=== PATIENT | male | born 1945 | race Caucasian/White ===

== ENCOUNTER → 2020-03-12 10:05 | Outpatient (POV) | payer MEDICARE, OTHER, SELFPAY | PROVIDERS: Visit Provider Audiologist | DX: Z00.00 Encounter for general adult medical examination without abnormal findings (principal) ==

== ENCOUNTER → 2021-09-24 12:37 | Outpatient (CLI) | payer MEDICARE, SELFPAY ==
[2021-09-24 14:05] VITALS: PULSE 63; PULSE 74
== END ==
PROVIDERS: PCP Internal Medicine Adolescent Medicine; Visit Provider Internal Medicine Adolescent Medicine
DX: R06.02 Shortness of breath (principal)
CPT/HCPCS: 94060; 94640; 94726; 94729

== ENCOUNTER → 2022-06-14 13:09 | Outpatient (CLI) | payer MEDICARE, SELFPAY ==
--- NOTE | 2022-06-14 13:16 | XR_ITS ---
FINAL REPORT CLINICAL HISTORY: PAIN FINDINGS: 3 views of the left knee were obtained. There is no acute fracture or dislocation. There is mild degenerative joint disease. There is no soft tissue abnormality. IMPRESSION: Mild degenerative joint disease. Reviewed, Interpreted and Dictated by Teri Lujan MD Transcribed by Checo Peres Authenticated and [facility]
--- NOTE | 2022-06-14 13:16 | XR_ITS ---
FINAL REPORT CLINICAL HISTORY: PAIN FINDINGS: 3 views of the right knee were obtained. There is no acute fracture or dislocation. There is [id number] degenerative joint disease. There is no soft tissue abnormality. IMPRESSION: [id number] degenerative joint disease. Reviewed, Interpreted and Dictated by Teri Lujan MD Transcribed by Checo Peres Authenticated and [facility]
== END ==
PROVIDERS: PCP Internal Medicine Adolescent Medicine; Visit Provider Internal Medicine Adolescent Medicine
DX: M25.562 Pain in left knee (principal); M25.561 Pain in right knee
CPT/HCPCS: 73562

== ENCOUNTER → 2022-08-17 14:15 | Outpatient (POV) | payer MEDICARE, SELFPAY | PROVIDERS: Visit Provider Specialist/Technologist | DX: Z00.00 Encounter for general adult medical examination without abnormal findings (principal) ==

== ENCOUNTER → 2022-10-21 15:20 | Outpatient (CLI) | payer MEDICARE, SELFPAY ==
--- NOTE | 2022-10-21 15:33 | XR_ITS ---
FINAL REPORT CLINICAL HISTORY: Left ankle pain COMPARISON: None FINDINGS: LEFT ANKLE Three views demonstrate no acute fracture or dislocation. There is a well-corticated ossific density inferior to the lateral malleolus measuring about 8 mm probably due to old trauma. Sideplate and screws are present securing the base of the first metatarsal. The visualized joint spaces are normally aligned. Moderate plantar spur is noted. There is moderate soft tissue swelling about the ankle. IMPRESSION: No acute bony abnormality. Reviewed, Interpreted and Dictated by Leo Alston MD Transcribed by Trini Acosta Authenticated and [facility]
== END ==
PROVIDERS: PCP Internal Medicine Adolescent Medicine; Visit Provider Orthopaedic Surgery
DX: M25.572 Pain in left ankle and joints of left foot (principal)
CPT/HCPCS: 73610

== ENCOUNTER → 2022-12-07 13:21 | Outpatient (CLI) | payer MEDICARE, SELFPAY ==
--- NOTE | 2022-12-07 13:21 | MR_ITS ---
FINAL REPORT CLINICAL HISTORY: ankle pain MEDIAL LEFT ANKLE PAIN X 2 MONTHS COMPARISON: None FINDINGS: Multiplanar MR imaging of the left ankle was performed without contrast.Mild and moderate degenerative changes present in the ankle. The bony structures are intact without evidence of fracture, bone bruise or marrow edema. There is a 5 mm osteochondral lesion in the distal tibia. There are chronic calcifications adjacent to both malleoli. There is thinning and bowing of the ATFL consistent with a chronic tear. The calcaneofibular ligament is not seen consistent with a tear. The flexor and extensor tendons are intact. There is a plantar calcaneal spur and posterior plantar fasciitis with a small tear. Small tibiotalar and subtalar joint effusions are seen. There is also fluid present in the sinus Tarsi worrisome for sinus Tarsi syndrome. The musculature is intact. There is no evidence of soft tissue mass or cyst. Soft tissue edema is present. IMPRESSION: Fluid in the sinus Tarsi worrisome for sinus Tarsi syndrome. Posterior plantar fasciitis with a small tear. 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 Reviewed, Interpreted and Dictated by Deniz Mg III, MD Transcribed by Deirdre Sosa Authenticated and [facility]
== END ==
PROVIDERS: PCP Internal Medicine Adolescent Medicine; Visit Provider Orthopaedic Surgery
DX: M25.572 Pain in left ankle and joints of left foot (principal)
CPT/HCPCS: 73721

== ENCOUNTER 2023-01-05 14:00 | Outpatient (RCR) | payer MEDICARE, SELFPAY ==
--- NOTE | 2022-12-21 14:51 | HMH.PTOPEV ---
PT Outpatient Evaluation Rehab PT Outpatient Evaluation Start: 12/21/22 14:37 Freq: Status: Active Protocol: Document 12/21/22 14:38 CAMERON (Rec: 12/21/22 14:51 CAMERON [id number]) E-signed By Bran Guzman, PT Outpatient Therapy Subjective History Subjective History Patient is a 77 year old male presenting to outpatient PT with reports of L foot/ankle pain of insidious onset starting approx 3 months ago. Most recent imaging indicates chronic ATFL and CFL tears, partial PF tear and tibial osteochondral defect. Comorbidities include hx of gastric bypass, HTN, diabetes and hernia repair. Chief Complaint Pain,Stiff,Swelling,Weakness Symptom Type Burning,Shooting Symptoms Relieved By Rest/Positioning,Prescription Meds Symptoms Aggravated By Standing,Physical Activity, Walking Prior Functional Limitations None Current Functional Limitations Housework,Standing,Recreation Activity,Walking,Stairs, Balance Symptom Description Intermittent Level of pain today (0-10) 1 Pain scale - at its best (0-10) 0 Pain scale - at its worst (0-10) 9 Ankle/Foot Eval Gait Observation General Gait Pattern Observation Antalgic Gait,Decrease Weight Bear (L) Assistive Device Ambulation Assistive Device None Palpation Tenderness left Ankle/Foot Palpation Findings Tenderness ATF TTP positive CF TTP positive ROM Ankle/Foot Dorsiflexion w/Knee Extended -3 Active Range Motion (degrees) Ankle/Foot Plantar Flexion Active Range 38 of Motion (degrees) Ankle/Foot Eversion Active Range of 11 Motion (degrees) Ankle/Foot Inversion Active Range of 14 Motion (degrees) Ankle/Foot ROM Limitations Soft Tissue Tightness,Bony Restriction Great Toe ROM Reason Not Measured Within Functional Limits Accessory Movements Ankle Accessory Movements that Elicit Tibial Dorsal Ferris,Tibial Symptoms Ventral Ferris MMT left Ankle Dorsiflexion Strength Grade 5 Normal Ankle Plantarflexion Strength Grade 5 Normal Foot Eversion Strength Grade 4- Good- Foot Inversion Strength Grade 4- Good- Special Tests Ankle Anterior Drawer Test Negative Left Ankle Eversion Test Negative Left Foot Interdig
== END 2023-01-05 14:05 | disposition home or self-care (01) ==
LOC: PT 14:00
PROVIDERS: PCP Internal Medicine Adolescent Medicine; Visit Provider Orthopaedic Surgery
DX: M25.572 Pain in left ankle and joints of left foot (principal); S93.492A Sprain of other ligament of left ankle, initial encounter; S93.412A Sprain of calcaneofibular ligament of left ankle, initial encounter
CPT/HCPCS: 97010; 97014; 97035; 97110; 97163; 97530; G0283

== ENCOUNTER → 2023-02-09 07:40 | Outpatient (CLI) | payer MEDICARE, SELFPAY ==
--- NOTE | 2023-02-09 07:47 | US_ITS ---
FINAL REPORT CLINICAL HISTORY: AAA COMPARISON: None FINDINGS: Sonographic images were obtained of the abdominal aorta. The abdominal aorta measures up to 2.7 in greatest dimensions. The common iliac arteries are within normal limits. IMPRESSION: No evidence of aortic aneurysm. Reviewed, Interpreted and Dictated by Deniz Mg III, MD Transcribed by Deirdre Sosa Authenticated and . [facility]
== END ==
PROVIDERS: PCP Internal Medicine Adolescent Medicine; Visit Provider Internal Medicine Adolescent Medicine
DX: Z13.6 Encounter for screening for cardiovascular disorders (principal)
CPT/HCPCS: 76705

== ENCOUNTER 2023-08-22 15:00 | Outpatient (RCR) | payer MEDICARE, SELFPAY ==
--- NOTE | 2023-07-26 14:56 | HMH.PTOPEV ---
PT Outpatient Evaluation Rehab PT Outpatient Evaluation Start: 07/26/23 13:47 Freq: Status: Active Protocol: Document 07/26/23 14:37 CAMERON (Rec: 07/26/23 14:55 CAMERON [id number]) E-signed By Bran Guzman, PT Outpatient Therapy Subjective History Subjective History Patient is a 77 year old male presenting to outpatient PT with reports of overall decreased balance/endurance. Patient reports no falls over the past 6 months, though he was referred for frequent falls. Symptoms have progressively gotten worse over the past 2 months. Patient previously seen in PT for L ankle pain. Comorbidities include hx of bariatric sx, HTN, diabetes, hernia sx and L bunionectomy. New diagnosis of cancer in past 12 No months? Chief Complaint Gives out/Unstable,Weakness Symptom Type Other Symptoms Relieved By Rest/Positioning Symptoms Aggravated By Standing,Physical Activity, Walking Prior Functional Limitations Standing,Walking Current Functional Limitations Housework,Standing,Walking, Stairs,Balance Symptom Description Intermittent Level of pain today (0-10) 0 Pain scale - at its best (0-10) 0 Pain scale - at its worst (0-10) 5 Dynamic Gait Index Test Protocol Gait Level Surface Mild Impairment Query Text: Instructions: Walk at your normal speed from here to the next antoinette (20'). Grading: Antoinette the lowest category that applies. Change in Gait Speed Mild Impairment Query Text: Instructions: Begin walking at your normal pace (for 5'), when I tell you go , walk as fast as you can (for 5'). When I tell you slow , walk as slowly as you can (for 5'). Grading: Antoinette the lowest category that applies. Gait with Horizontal Head Turns Mild Impairment Query Text: Instructions: Begin walking at your normal pace. When I tell you to look right , keep walking straight, but turn you head to the right. Keep looking to the right unit I tell you look left , then keep walking straight and turn your head to the left. Keep your head to the left until I tell you look straight , then keep walking straight, but return you head to the center. Grading: Antoinette the lowest category that applies. Gait with Vertical Head Turns Moderate Impairment Query Text: Instructions: Begin walking at your normal pace. When I tell you to look up , keep walking staight, but tip your head up. Keep looking up until I tell you to look down , then keep walking straight and tip your head down. Keep your head down until I tell you look straight , then keep walking straight, but return your head to the center. Grading: Antoinette the lowest category that applies. Gait and Pivot Turn Normal Query Text: Instructions: Begin walking at your normal pace. When I tell you turn and stop , turn as quickly as you can to face the opposite direction and stop. Grading: Antoinette the lowest category that applies. Step Over Obstacle Mild Impairment Query Text: Instructions: Begin walking at your normal speed. When you come to the shoebox, step over it, not around it and keep walking. Grading: Antoinette the lowest category that applies. Step Around Obstacles Normal Query Text: Instructions: Begin walking at normal speed. When you come to the first cone (about 6' away), walk around the right side of it. When you come to the second cone (6' past first cone), walk around it to the left. Grading: Antoinette the lowest category that applies. Steps Mild Impairment Query Text: Instructions: Walk up these stairs as you would at home. At the top, turn around and walk down. Grading: Antoinette the lowest category that applies. Scoring Dynamic Gait Index Score 17 Outpatient Therapy Assessment Impairments Problems/Impairmments Palpation Tenderness,Impaired Range of Motion,Impaired Endurance,Impaired Transfers, Impaired Gait Pattern,Impaired Walking,Impaired Standing, Impaired Household Care, Impaired Stair Climbing, Impaired Incline Stepping, Impaired Stepping on Uneven Surface,Impaired Squatting, Impaired Bending,Impaired Balance,Impaired DGI Score, Subjective C/O Pain Prognosis Rehab Potential Good Clinical Impression Consistent with Diagnosis Yes Short Term Goals Number of Weeks 2 Patient to be Ind w/ HEP Yes Evaluation Manager Goals Number of Weeks 4-6 Decreased Palpation Tenderness Yes Increase Range of Motion Yes: B ankle DF >5 deg Increase Ability to Walk Yes: 30 min without difficulty Increase Ability to Stand Yes: Improve Ability For Household Care Yes Improve Ability to Climb Stairs Yes: 1 flight without difficulty Increase DGI Score Yes: <8 Outpatient Therapy Plan of Care Treatment Plan May Include Therapeutic Exercise Including Home Yes Exercise Program Manual Therapy Techniques Yes Neuromuscular Re-education Yes Therapeutic Activities to Return to Yes Previous Functional/Work Level Gait Training Yes ADL/Self Care Education Yes Dry Needling Yes Thermal Modalities Yes Electrical Stimulation Yes Ultrasound/Phonophoresis Yes Iontophoresis Yes Orthotics/Bracing/Splinting Yes Massage Yes Eval/Re-Eval Yes Frequency Times per week 2 Duration Number of Weeks 4-6 Addendums This patient is a candidate for social No or vocational rehab? Patient/Guardian verbally acknowledges Yes understanding of treatment program and consents to further treatment? Patient/Guardian verbally acknowledges Yes understanding of diagnosis, prognosis and goals for treatment? Eval Complexity PT Charges 47371 - Moderate Complexity Shoulder/Elbow Eval Shoulder Objective Measurements Elbow Objective Measurements PHYSICIAN CERTIFICATION: I certify the specified therapy services for Ryder Chauhan are required, authorized, and reviewed every 30 days.
== END 2023-08-22 15:05 | disposition home or self-care (01) ==
LOC: PT 15:00
PROVIDERS: Visit Provider Internal Medicine Adolescent Medicine
DX: R29.6 Repeated falls (principal)
CPT/HCPCS: 97110; 97112; 97163; 97530

== ENCOUNTER 2024-10-16 07:12 | Outpatient (CLI) | payer MEDICARE, SELFPAY ==
--- OUTSIDE RECORDS SUMMARY | 2024-10-16 07:16 | XMS_ITS | Data Portability ---
Author Organization RADHA AMADOR [facility] [place] [facility] Address [address] [facility] [place] [address] Care Team Providers Care Silk Folder Name Role Phone CECILIA DWYER Primary Care Provider JERONIMO TRUJILLO Racehorse Trainer Assessment Encounter Date Assessment Date Assessment LastModified by Organization Details LastModified Time 01/12/2017 01/12/2017 Changed to Uroxatral. Continue with cystoscopy and uroflowmetry for possible surgical intervention. [email or web address] Not available 01/15/2017 16:17:21 01/24/2017 01/24/2017 SURGERY DATE: 01/24/2017 PREOPERATIVE DIAGNOSIS: Benign prostatic hyperplasia with lower urinary tract symptoms. POSTOPERATIVE DIAGNOSIS: Benign prostatic hyperplasia with lower urinary tract symptoms. PROCEDURES PERFORMED: 1. Cystoscopy. 2. Uroflowmetry. SURGEON: Dione Barraza M.D. ANESTHESIA: Local. ESTIMATED BLOOD LOSS: None. COMPLICATIONS: None. SPECIMENS: None. OPERATIVE FINDINGS: 1. Uroflow with a max flow rate of 15.9 mL per second with a voided volume of 221 mL. 2. Bladder mucosa without evidence of erythema, papillary bladder mass, foreign body. 3. The prostatic urethra 4 cm in length with trilobar hyperplasia. INDICATIONS FOR PROCEDURE: A patient with benign prostatic hyperplasia with lower urinary tract symptoms. He presents for cystourethroscopy with uroflowmetry to evaluate candidacy for a BPH procedure. DESCRIPTION OF PROCEDURE: The patient was correctly identified in the preoperative holding area. Informed consent was obtained after all risks, benefits, and alternatives were reviewed with the patient. He was taken to the procedure room and positioned in the supine position with all pressure points padded. A proper timeout procedure completed. Preoperative antibiotics were given orally. The genitourinary area was prepped and draped in the normal, sterile fashion. Lidocaine gel was instilled for local analgesia. The flexible cystoscope was advanced through the urethra and into the urinary bladder. Pancystoscopy performed. No foreign bodies, masses, or lesions were encountered. The ureteral orifices were normal in anatomic position. The prostate had trilobar hyperplasia with enlarged medial lobe. The prostate was 4 cm in length. The urethra was without evidence of stricture or stenosis. DISPOSITION: The patient tolerated the procedure well. He was taken to the recovery room in stable condition. He is discharged home with instructions to follow up in one month for further discussion regarding potential surgical options. [email or web address] Not available 01/24/2017 16:06:20 02/23/2017 02/23/2017 We discussed options for BPH with lower urinary tract symptoms managed. We discussed TURP versus greenlight laser vaporization of prostate. We discussed the risks and benefits of each. [email or web address] Not available 02/27/2017 11:19:23 Plan of Treatment Reminders Order Date Submit Date Provider Last Modified By Organization Details Last Modified Time Details Appointments DERM VISIT 2024 02:50P Julian SOLER MD Not available Not available Not available Lab urinalysi s, dipstick, auto 2016 017 [email or web address] [facility] Extended Services With [address], [place], [address], 02/27/2017 11:19:29 urinalysi s, dipstick, auto 2016 017 [email or web address] [facility] Extended Services With [address] [place], [address], 01/12/2017 16:43:08 Referral None recorded. Procedures None recorded. Surgeries transuret hral resection of prostate (SURG) 2016 Aleyda [email or web address] Not available 03/07/2017 09:24:19 cystoscop y (SURG) 2016 Aleyda [email or web address] [facility] Professional Charges, [address] [facility] [address], [place], [address], 01/16/2017 12:14:34 Imaging None recorded. Medication Orders Uroxatral 10 mg tablet,ex tended release 2016 017 INTERFACE [facility], [address], [place], [address], 01/12/2017 16:43:19 Patient TargetsNo targets recorded. Patient Instructions Encounter Date Encounter Id Patient Instructions Last Modified By Organization Details Last Modified Time 01/12/2017 [id number] learning about healthy weight GARRY Not available 01/14/2017 15:54:22 [email or web address]* [email or web address] Not available 11:59:12 Reason for Referral None Reported. Results Created Date Observation Date Name Description Value Unit Range Abnormal Flag Note LastModifiedBy Organization Detail LastModifiedTime 02/24/20 17 02/23/2017 urina lysis , dipst ick, auto Unknown Analyte Yellow Not Available [facility] [place] Extended Services With [address], [place], [address], 02/23/2017 13:43:50 02/24/20 17 02/23/2017 urina lysis , dipst ick, auto Unknown Analyte Clear Not Available [facility] Extended Services With [address], [place], [address], 02/23/2017 13:43:50 02/24/20 17 02/23/2017 urina lysis , dipst ick, auto Unknown Analyte 1.015 Not Available [facility] Extended Services With [address], [place], [address], 02/23/2017 13:43:50 02/24/20 17 02/23/2017 urina lysis , dipst ick, auto Unknown Analyte 5.0 Not Available [facility] With [address], [place], [address], 02/23/2017 13:43:50 02/24/20 17 02/23/2017 urina lysis , dipst ick, auto Unknown Analyte Negati ve Not Available [facility] Extended Services With [address], [place], [address], 02/23/2017 13:43:50 02/24/20 17 02/23/2017 urina lysis , dipst ick, auto Unknown Analyte Negati ve Not Available [facility] Services With [address], [place], [address], 02/23/2017 13:43:50 02/24/20 17 02/23/2017 urina lysis , dipst ick, auto Unknown Analyte Negtiv e Not Available [facility] Extended Services With [address], [place], [address], 02/23/2017 13:43:50 02/24/20 17 02/23/2017 urina lysis , dipst ick, auto Unknown Analyte Normal Not Available [facility] Extended Services With [address], [place], [address], 02/23/2017 13:43:50 02/24/20 17 02/23/2017 urina lysis , dipst ick, auto Unknown Analyte Negati ve Not Available [facility] Extended Services With [address], [place], [address], 02/23/2017 13:43:50 02/24/20 17 02/23/2017 urina lysis , dipst ick, auto Unknown Analyte Normal Not Available [facility] Extended Services With [address], [place], [address], 02/23/2017 13:43:50 02/24/20 17 02/23/2017 urina lysis , dipst ick, auto Unknown Analyte Negati ve Not Available [facility] Extended Services With [address], [place], [address], 02/23/2017 13:43:50 02/24/20 17 02/23/2017 urina lysis , dipst ick, auto Unknown Analyte Trace Not Available [facility] Extended Services With [address], [place], [address], 02/23/2017 13:43:50 02/24/20 17 02/23/2017 urina lysis , dipst ick, auto Unknown Analyte Clean Catch Not Available [facility] Extended Services With [address], [place], [address], 02/23/2017 13:43:50 02/24/20 17 02/23/2017 urina lysis , dipst ick, auto Unknown Analyte Automa alek Not Available [facility] Extended Services With [address], [place], [address], 02/23/2017 13:43:50 01/13/20 17 01/12/2017 urina lysis , dipst ick, auto Unknown Analyte Yellow Not Available [facility] Extended Services With [address], [place], [address], 01/12/2017 16:40:44 01/13/20 17 01/12/2017 urina lysis , dipst ick, auto Unknown Analyte Clear Not Available [facility] Extended Services With [address], [place], [address], 01/12/2017 16:40:44 01/13/20 17 01/12/2017 urina lysis , dipst ick, auto Unknown Analyte 1.005 Not Available [facility] Extended Services With [address], [place], [address], 01/12/2017 16:40:44 01/13/20 17 01/12/2017 urina lysis , dipst ick, auto Unknown Analyte 5.0 Not Available [facility] Extended Services With [address], [place], [address], 01/12/2017 16:40:44 01/13/20 17 01/12/2017 urina lysis , dipst ick, auto Unknown Analyte Negati ve Not Available [facility] Extended Services With [address], [place], [address], 01/12/2017 16:40:44 01/13/20 17 01/12/2017 urina lysis , dipst ick, auto Unknown Analyte Negati ve Not Available [facility] Extended Services With [address], [place], [address], 01/12/2017 16:40:44 01/13/20 17 01/12/2017 urina lysis , dipst ick, auto Unknown Analyte Negtiv e Not Available [facility] Extended Services With [address], [place], [address], 01/12/2017 16:40:44 01/13/20 17 01/12/2017 urina lysis , dipst ick, auto Unknown Analyte Normal Not Available [facility] Extended Services With [address], [place], [address], 01/12/2017 16:40:44 01/13/20 17 01/12/2017 urina lysis , dipst ick, auto Unknown Analyte Negati ve Not Available [facility] Extended Services With [address], [place], [address], 01/12/2017 16:40:44 01/13/20 17 01/12/2017 urina lysis , dipst ick, auto Unknown Analyte Normal Not Available [facility] Extended Services With [address], [place], [address], 01/12/2017 16:40:44 01/13/20 17 01/12/2017 urina lysis , dipst ick, auto Unknown Analyte Negati ve Not Available [facility] Extended Services With [address] [place], [address], 01/12/2017 16:40:44 01/13/20 17 01/12/2017 urina lysis , dipst ick, auto Unknown Analyte Negati ve Not Available [facility] Extended Services With [address] [place], [place], [address], 01/12/2017 16:40:44 01/13/20 17 01/12/2017 urina lysis , dipst ick, auto Unknown Analyte Clean Catch Not Available [facility] Extended Services With [address], [place], [address], 01/12/2017 16:40:44 01/13/20 17 01/12/2017 urina lysis , dipst ick, auto Unknown Analyte Automa alek Not Available [facility] Extended Services With [address], [place], [address], 01/12/2017 16:40:44 Result Notes None recorded. Problems Name Problem SNOMED Code Status Onset Date Resolution Date Notes Provider Name and Address Organization Details Recorded Time Urinary tract infectious disease 84713292 Active 017 Romiguelangel sharma [facility] 7 16:38:03 Problem Notes None recorded. Procedures Surgical History Date Name Laterality Status Provider Name and Address Organization Details Recorded Time 01/22/20 24 DAK - Cryo AK completed Zafar Hopson [facility] 01/22/2024 16:00:01 08/24/19 24 Destruction Premalignant Lesion(s) completed Ellie William [facility] 08/24/2023 10:55:26 Gastric bypass for obesity [facility]/12/[facility] 16:38:38 Imaging Results None recorded. Procedure Notes None recorded. Medical Equipment None Reported. Allergies Allergen ID Allergen Name Allergen Category Reaction Reaction Severity Criticality Documentation Date Start Date Code Code System Note Provider Name and Address Organization Details Recorded Time 691583 cephalexi n medicatio n Not available Not available Not available 01/12/20171 RxNorm No Cleary [facility] 7 16:36:08 060410 Biaxin medicatio n Not available Not available Not available 08/21/202378600 9 RxNorm Luis Manuel William [facility] 4 10:17:37 Medications Name Sig Start Date Stop Date Status Note LastModified by Organization Details LastModified Time tamsulosin 0.4 mg capsule 2016 active Not Available Not Available Not Avai lable finasteride 5 mg tablet Take 1 tablet every day by oral route. active Not Available Not Available No t Available alfuzosin ER 10 mg tablet,extended release 24 hr 2016 active Not Available Not Available Not Avai lable losartan 100 mg-hydrochloroth iazide 12.5 mg tablet Take 1 tablet every day by oral route. active Not Available Not Available No t Available Vitamin C active Not Available Not Lolly ilable Not Available folic acid active Not Available Not Av ailable Not Available Aspir-81 active Not Available Not Avai lable Not Available amlodipine active Not Available Not Av ailable Not Available cyclobenzaprine active Not Available N ot Available Not Available metformin active Not Available Not Lolly ilable Not Available Vitamin B12 active Not Available Not A vailable Not Available Vitals Date Recorded Body height Provider Name an d Address Organization Details Last Updated DateTime 08/24/2023 177.8 cm Ellie William [facility] 08/24/2023 10:37:49 Date Recorded Body height Body mass index (BMI) Body weight Systolic blood pressure Diastolic blood pressure Provider Name and Address Organization Details Last Updated DateTime 01/12/2017 180.34 cm 37.2 kg/m2 405721.1 6 g 132 mm[Hg] 86 mm[Hg] No Cleary [facility] 7 16:35:30 Date Recorded Body height Body mass index (BMI) Body weight Systolic blood pressure Diastolic blood pressure Provider Name and Address Organization Details Last Updated DateTime 02/23/2017 180.34 cm 37.2 kg/m2 561554.1 6 g 120 mm[Hg] 64 mm[Hg] No Cleary [facility] 7 13:43:00 Social History Question Answer Notes LastModified by [employer] Details LastModified Time Tobacco Smoking Status Former Smoker No Cleary null, [facility] 01/12/2017 16:38:23 Marital Status bella Informatio n not available 01/12/2017 What Was The Date Of Your Most Recent Tobacco Screening? 01/22/2024 [email or web address] Information not available 01/22/2024 Sex: Unknown Functional Status Question Answer Note LastModified by [employer] Details LastModified Time What is your level of alcohol consumption? Occasional [email or web address] Information not available 08/21/2023 Mental Status None recorded. Family History Relationship Description Onset Age of this Age Resolved Age Notes LastModified by Organization Details LastModified Time Father Kidney stone bella Not availab le 01/12/2017 16:38:15 Medical History Condition Response Squamous Cell Carcinoma N High PSA N Diabetes Y Basal Cell Carcinoma N Sleep Apnea Y Hypertension Y Past Encounters Encounter ID Performer Location Encounter Start Date Encounter Closed Date Diagnosis/Indication Diagnosis SNOMED-CT Code Diagnosis ICD10 Code Diagnosis Note [id number] DIONE BARRAZA MD [facility] [address] [address] 01/12/2017 16:33:56 01/16/2017 14:16:39 Benign prostatic hyperplasia with outflow obstruction 390049171 N40.1 [id number] DIONE BARRAZA MD SURGERY SCHEDULE [address] [place] [address] 01/24/2017 12:26:43 01/24/2017 12:29:13 [id number] DIONE BARRAZA MD [facility] [address] [address] 02/23/2017 13:39:04 02/28/2017 16:06:30 Benign prostatic hyperplasia with outflow obstruction 762701117 N40.1 [id number] JERONIMO TRUJILLO MD [facility] [address] [place] [address] 08/24/2023 09:42:38 08/24/2023 14:36:25 Actinic keratosis L57.0 Diagnosis discussedC alessia performed Seborrheic keratosis 394 711394 L82.1 Reassuranc e given. [id number] July MD DYLON [facility] [address] [place] [address] 01/22/2024 14:48:31 01/22/2024 16:21:27 Multiple benign melanocytic nevi 152385241 D22.5 I78.1 L82.1 L81.4 Benign appearing lesions.Co ntinue to monitor and follow-up with any or changing lesions.Re commend to wear SPF 30+ with zinc or titanium oxide cream daily. Prefers lotions/cr eams over sprays.Fol low up in 1 year for a full skin exam. Actinic keratosis L57.0 Precancero us lesion(s). Will LN2 today.Can leave a white discolorat ion in the areas when LN2 is performed. Follow-up if lesion(s) persists or do not resolve. Blue nevus of skin 37912 6009 D23.9 He reports pencil lead in skin. Longstandi ng.Appears to be blue nevus.Cont inue to monitor for changes in size, shape and color.Retu rn to care if lesion becomes bothersome or if changes occur. Health Concerns Section Related Observation LastModified by Organization Detai ls LastModified Time None Recorded Concern Status LastModified by Organization Details LastModified Time None Recorded Advance Directives Directive None Recorded Payers Insurance Date Sequence Insurance Name Policy Number Policy Mack Covered Member ID Mack Member ID Guarantor Name 09/26/2024 1 [employer] - CHOICECARE (PPO) Ryder Chauhan [id number] Ryder Chauhan 09/26/2024 [employer] (MEDICARE REPLACEMENT/A DVANTAGE - PPO) Ryder Chauhan [id number] Ryder Chauhan 09/26/2024 1 [employer] (MEDICARE REPLACEMENT/A DVANTAGE - PPO) Ryder Chauhan [id number] Ryder Chauhan 05/07/2017 PAYMENT PLAN Ryder Chauhan Notes Date Note Type Note Provider Name and Address Organization Details Recorded Time 01/12/2017 text/html 71-year-old male in the office for consultation and evaluation of benign prostatic hyperplasia with lower urinary tract symptoms. He has taken Flomax with some improvement of symptoms. Recently his symptoms have begun to worsen. He voids every 1-2 hours with nocturia once nightly. He has significant hesitancy at night with associated dribbling stream and abdominal straining. He denies urgency, hematuria, dysuria. He takes finasteride 5 mg daily and Flomax 0.4 mg daily. PSA from January 11, 2017 was 1.0. DIONE BARRAZA MD [address] [place] [address], [phone] [place] [address] 01/15/2017 16:18:40 02/23/2017 text/html 71-year-old male in the office for follow-up evaluation after cystoscopy and ureteral follow-up for benign prostatic hyperplasia with lower urinary tract symptoms. Uroflow rate at maximum was 15.9 mL/s. Prostatic urethra was 4 cm in length with trilobar hyperplasia. He voids every 1.5-2 hours with nocturia one to 2 times nightly. He does have urinary hesitancy. DIONE BARRAZA MD [address] [place] [address], [phone] [place] [address] 02/27/2017 11:20:30 08/24/2023 text/html I have differen t spots on my skin that I'd like to be checked Extent of skin exam requested:focal , left ear, left hand Spot on chest to check too JERONIMO TRUJILLO MD [address] [place] [address], [address], [facility] 09/01/2023 21:01:55 01/22/2024 text/html I am here for my waist up skin check. AMI OSBORNE MD [address] [place] [address], [phone] 01/23/2024 12:43:10
--- NOTE | 2024-10-16 07:21 | CA_ITS ---
FINAL REPORT TECHNIQUE: Right lower extremity venous duplex was performed with augmentation and compression. CLINICAL HISTORY: Patient states RLE has been swollen and painful x 10 days. He states he recently became more sedentary due to caring for spouse who recently had surgery. Denies trauma. HTN, pre diabetes II. COMPARISON: None FINDINGS: Ultrasound examination of the right lower extremity demonstrates thrombus and loss of compressibility in the popliteal vein extending into the superficial femoral vein, consistent with deep venous thrombosis. These results were called by the tomography technologist at [facility] to the office of Dr. Silvano Worthington, 10/16/2024 at 8:05 AM. IMPRESSION: Thrombus and loss of compressibility in the popliteal vein and superficial femoral vein in the right lower extremity. Results were called to the physician's office as described above. Reviewed, Interpreted and Dictated by Leo Alston MD Transcribed by Deirdre Sosa Authenticated and [facility]
== END 2024-10-16 23:59 | disposition home or self-care (01) ==
LOC: RT 07:15
PROVIDERS: PCP Internal Medicine Adolescent Medicine; Visit Provider Internal Medicine Adolescent Medicine
DX: I82.431 Acute embolism and thrombosis of right popliteal vein (principal); I82.411 Acute embolism and thrombosis of right femoral vein; I10 Essential (primary) hypertension; R73.03 Prediabetes
CPT/HCPCS: 93971

== ENCOUNTER 2024-10-16 09:22 | Outpatient (CLI) | payer MEDICARE, SELFPAY ==
[2024-10-16] MEDS: ENOXAPARIN 120MG/0.8ML SYRINGE 120 MG SUBCUT (09:31)
[2024-10-16 09:35] VITALS: BP 109/52; PULSE 56; RESP 18; TEMP 36.8; O2SAT 99
== END 2024-10-16 09:40 | disposition home or self-care (01) ==
LOC: INF 09:23
PROVIDERS: PCP Internal Medicine Adolescent Medicine; Visit Provider Internal Medicine Adolescent Medicine
DX: I82.401 Acute embolism and thrombosis of unspecified deep veins of right lower extremity (principal)
CPT/HCPCS: 96372; J1650